=== PATIENT | male | born 1965 | race Caucasian/White ===

== ENCOUNTER 2024-06-04 10:34 | Emergency (ER) | payer BC, SELFPAY ==
--- OUTSIDE RECORDS SUMMARY | 2024-06-04 10:37 | XMS_ITS | Encounter Summary ---
Author Organization [facility] Address [address] [place] [id number] Care Team Providers Care Cement Fittings Maker Name Role Phone Henrry Pryor MD Primary Care Provider [phone] Ralph House MD Primary Care Provider [phone] [facility] Primary Care Provider + Encounter Details Date Type Department Care Team (Late st Contact Info) Description 05/28/2011 [facility] [address] [phone] Haresh Dunn Social History Tobacco Use Types Packs/Day Years Used Date Smoking Tobacco: Never Alcohol Use Standard Drinks/Week Comments No 0 (1 standard drink = 0.6 oz pur e alcohol) sober 5 years Sex and Gender Information Value Date Recorded Sex Assigned at Not on file Legal Sex Male 3:25 AM [employer] Gender Identity Not on file Sexual Orientation Not on file documented as of this encounter Plan of Treatment Not on file documented as of this encounter Visit Diagnoses Not on filedocumented in this encounter Additional Health Concerns Infection Onset Date Last Indicated Resolved Time Rule Out COVID-19 Comment:Negative COVID-19 06/20/2019 06/20/2019 06/26/2019 12: 24 PM CDT documented as of this encounter Care Teams Cement Fittings Maker Relationship Specialty Start Date End Date Henrry Pryor MD [address] [phone] PCP - General 02/14/08 05/09/15 Ralph House MD [phone] [place] [phone] PCP - General Family Practice 05/10/15 06/19/19 [facility] [id number] [place] [address] [place] [phone] PCP - General 06/20/19 documented as of this encounter
--- OUTSIDE RECORDS SUMMARY | 2024-06-04 10:37 | XMS_ITS | Clinical Summary ---
Author Organization [facility] Address [address] [place] [id number] Care Team Providers Care Delivery Manager Name Role Phone Zuleima Bryant MD Primary Care Provider [phone] Allergies Active Allergy Reactions Criticality Noted Date Comments Fluoxetine Headache Low 04/25/2015 Medications fluticasone (50 mcg per actuation) nasal solution (FLONASE)Indicati ons:Rhinitis, unspecified type Inhale 1 [place] to both nostrils two times daily. 48 mL 3 3 Active fluticasone propion-salmetero L (ADVAIR) 500-50 mcg/Dose diskus inhalerIndication s:SOB (shortness of breath) Inhale 1 Puff by mouth two times daily. 180 Each 3 4 Active predniSONE (DELTASONE) 50 mg tab tabletIndications :Sinusitis, unspecified chronicity, unspecified location,Moderate persistent asthma without complication Take 1 tablet with morning meal x 10 days 10 Tablet 1 4 Active albuterol HFA (PRO-AIR; VENTOLIN; PROVENTIL) 90 mcg/actuation inhalerIndication s:Moderate persistent asthma without complication Inhale 2 Puffs by mouth every 4 hours if needed for Shortness of Breath 1st choice. 1 Each 11 4 Active omeprazole (PRILOSEC) 40 mg Delayed-Release capsuleIndication s:Chronic GERD TAKE 1 CAPSULE BY MOUTH EVERY DAY BEFORE A MEAL 90 Capsule 2 4 Active escitalopram oxalate (Lexapro) 20 mg tabletIndications :Depression, recurrent Take 1 Tablet (20 mg) by mouth once daily. 90 Tablet 3 Active SUMAtriptan (IMITREX) 100 mg tabletIndications :Migraine syndrome Take 1 Tablet (100 mg) by mouth 2 times daily if needed for Migraine. Give at minimum 2hrs apart. Max Dose: 200mg per 24hrs. 10 Tablet 3 5 Active Active Problems Problem Noted Date Diagnosed Date Routine health maintenance 04/20/2024 Overview (04/20/2024): Colonoscopy 03/28, recheck 5 years S/p left long finger DIP grabiel nt arthrotomy with excision of distal phalanx osteophyte DOS:10/26/22 by Jamir Harris MD 11/05/2022 Lump on finger, left 09/24/2022 Moderate persistent asthma 08/24/2017 Mixed hyperlipidemia 08/24/2017 S/P sinus surgery 08/24/2017 Hematuria 03/31/2016 GERD (gastroesophageal reflux disease) 3 Chronic rhinitis 03/27/2011 Tubular adenoma of colon Overview (04/10/2019): 03/2019 2 polyps; repeat 2023. [address] scan, esophagus Resolved Problems Problem Noted Date Diagnosed Date Resolved Date Asthma 08/24/2017 Encounters Date Type Department Care Team Description 04/27/2024 9:25 AM PROCESS DESIGN CHEMICAL ENGINEER Office Visit [address] [address] Drew Blackmon MD Medication Management (Patient needs refills dosage was increased.); Establish Care; Diarrhea (Every morning for about 4-5 months, patient states that is really bad and he has leakage.); Cough; Fatigue; Lab (Patient would like Testosterone levels checked.) 04/26/2024 Travel 04/24/2024 Refill [facility] [id number] [place] [id number] Heidi Bourne NP Refill Request (Escitalopram Oxalate) 04/24/2024 Telephone [facility] [id number] [place] [address] Zuleima Bryant MD Refill Request (escitalopram oxalate (LEXAPRO) 10 mg tablet /) from Last 3 Months Immunizations Name Administration Dates Next Due AMB INFLUENZA, IIV4 (AGE=>6M OS) MDV (Flu Clinic Only) 01/21/2020 COVID-19 VACCINE SPIKEVAX (M ODERNA 50MCG/0.5ML) 12YO+ PFS 04/08/2023 COVID-19 vaccine (Moderna 50mcg/0.5mL) 12YO+ BIVALENT PF, MDV 12/31/2021 COVID-19 vaccine (Pfizer-Bio NTech 30mcg/0.3mL) PF, MDV 07/26/2020,07/06/2020 Influenza, IIV3 (Age >=3 years) 12/22/19 13,02/02/2012,01/04/2012,2010,01/27/2010 Influenza, IIV4 04/08/2023,,03/12/2021,2018,04/20/2018,01/19/2017,01/14/2016,1 ,12/27/2013 Influenza, IIV4 (=>6mos) MDV 01/07/2015 Pneumococcal Poly,23-Valent (Pneumovax) 05/30/2012 Tdap 09/07/2017,02/02/2012 Family History Medical History Relation Name Comments Alcoholism Father Cancer Father unknown Cancer Maternal Grandfather unsure Cancer Maternal Grandmother brain t umor Cancer-prostate Maternal Uncle Psychiatric illness Mother depressi on Diabetes Son Relation Name Status Comments Father Maternal Grandfather Maternal Grandmother Maternal Uncle Mother Alive Paternal Grandfather Paternal Grandmother Son Alive Social History Tobacco Use Types Packs/Day Years Used Date Smoking Tobacco: Never Passive Smoke Exposure: Never Smokeless Tobacco: Never Tobacco Cessation:Counseling Given: No Alcohol Use Standard Drinks/Week Comments No 0 (1 standard drink = 0.6 oz pur e alcohol) quit 2000 to avoid problem PHQ-2 Answer Date Recorded PHQ-2 TOTAL SCORE 1 03/06/2024 Social Connections Answer Date Recorded Do you often feel lonely or isolated from those around you? 0 04/27/2024 Financial Resource Strain Answer Date R ecorded Difficulty of Paying Living Expenses 3 12/16/2023 Difficulty of Paying Living Expenses Not on file 12/16/2023 Food Insecurity Answer Date Recorded Do you worry your food will run out before you are able to buy more? 1 04/27/2024 Transportation Needs Answer Date Record ed Does lack of transportation keep you from medica l appointments? 1 04/27/2024 Does lack of transportation keep you from work, meetings or getting things that you need? 1 04/27/2024 Housing Stability Answer Date Recorded What is your housing situation today? 1 04/27/2024 Utilities Answer Date Recorded Do you have trouble paying f or utilities (for example, heat, electricity, water, phone)? 1 04/27/2024 Sex and Gender Information Value Date Recorded Sex Assigned at Male 09/24/2020 9:26 PM CDT Legal Sex Male 2:28 PM PROCESS DESIGN CHEMICAL ENGINEER Gender Identity Male 09/24/2020 9:26 PM CDT Sexual Orientation Not on file 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 file Not on file Not on file Obstetrics History Last Filed Vital Signs Vital Sign Reading Time Taken Comments Blood Pressure 142/92 04/27/2024 9:26 AM PROCESS DESIGN CHEMICAL ENGINEER Pulse 69 04/27/2024 9:24 AM PROCESS DESIGN CHEMICAL ENGINEER Temperature 37.4 C (99.3 F) 12/30/2023 12:57 PM CDT Respiratory Rate 16 03/05/2022 1:00 PM PROCESS DESIGN CHEMICAL ENGINEER Oxygen Saturation 95% 04/27/2024 9:24 AM PROCESS DESIGN CHEMICAL ENGINEER Inhaled Oxygen Concentration - - Weight 98.2 kg (216 lb 9.6 oz) 04/27/2024 9:24 A M PROCESS DESIGN CHEMICAL ENGINEER Height 182.9 cm (6') 04/27/2024 9:24 AM PROCESS DESIGN CHEMICAL ENGINEER Body Mass Index 29.38 04/27/2024 9:24 AM PROCESS DESIGN CHEMICAL ENGINEER Plan of Treatment Health Maintenance Due Date Last Done Comments HIV for age 15-65 1978 Hepatitis C screening for ag e 18-79 1981 Zoster (shingles) series for age 50+ (1 of 2) 2013 Pneumococcal series for age 50+ (2 of 2 - PCV) 05/30/2013 05/30/2012 RSV vaccine for adults or (1 - Risk 60-74 years 1-dose series) 2023 COVID-19 vaccine series ( season) 2023 04/08/2023, 12/31/2021, 03/12/2021, Additional history exists Influenza for age 50-64 12/05/2023 04/08/19 24, 12/31/2021, 03/12/2021, Additional history exists Depression screening for age 12+ 03/06/2025 03/06/2024, 03/05/2024, 12/30/2023, Additional history exists BMI (ht and wt on same day) for age 18+ 04/27/2025 04/27/2024, 11/27/2022, 02/12/2022, Additional history exists Tetanus booster 09/08/2027 09/07/2017, 02/02/2012 Colonoscopy through age 75 03/24/202903/24, 2019, 06/08/2013 Lipids for age 45-75 04/27/2029 04/27/2024, 10/30/2021, 02/01/2019, Additional history exists Tdap Completed 09/07/2017, 02/02/2012 Procedures Procedure Name Priority Date/Time Associated Diagnosis Comments CBC WITH AUTO DIFFERENTIAL Routine 04/27/2024 9:52 AM PROCESS DESIGN CHEMICAL ENGINEER Fatigue, unspecified type COMP METABOLIC PANEL Routine 04/27/2024 9:52 AM PROCESS DESIGN CHEMICAL ENGINEER Fatigue, unspecified type PSA TOTAL Routine 04/27/2024 9:52 AM PROCESS DESIGN CHEMICAL ENGINEER Routine health maintenance T4,FREE Routine 04/27/2024 9:52 AM PROCESS DESIGN CHEMICAL ENGINEER Routine health maintenance TSH Routine 04/27/2024 9:52 AM PROCESS DESIGN CHEMICAL ENGINEER Routine health maintenance TESTOSTERONE BIOAVAILABLE & FREE Routine 04/27/2024 9:52 AM PROCESS DESIGN CHEMICAL ENGINEER Routine health maintenance VITAMIN D 25 (DEFICIENCY) Routine 04/27/2024 9:52 AM PROCESS DESIGN CHEMICAL ENGINEER Routine health maintenance LIPID PANEL Routine 04/27/2024 9:52 AM PROCESS DESIGN CHEMICAL ENGINEER Routine health maintenance SCAN-COLONOSCOPY 03/24/2024 7:30 AM PROCESS DESIGN CHEMICAL ENGINEER from Last 3 Months Results * TESTOSTERONE BIOAVAILABLE & FREE (04/27/2024 9:52 AM PROCESS DESIGN CHEMICAL ENGINEER) ALBUMIN 4.3 3.6 - 5.1 g/dL [facility] SEX HORMONE BINDING GLOBULIN 34.9 22 - 77 nmol/L [facility] TESTOSTERONE, FREE 63.6 46.0 - 224.0 pg/mL [facility] TESTOSTERONE,BIO AVAILABLE 125.3 110.0 - 575.0 ng/dL [facility] TESTOSTERONE, TOTAL, MS 489 250 - 1,100 ng/dL [facility] Comment: For additional information, please refer to https://education.FlowJob/faq/QKF333 (This link is being provided for informational/educational purposes only.) (Note) This test was developed and its analytical performance characteristics have been determined by [facility]. It has not been cleared or approved by the FDA. This assay has been validated pursuant to the CLIA regulations and is used for clinical purposes. [facility] [address] [address],[address] [facility] [address] Aleida Ashley MD, PhD Blood BLOOD SPECIMEN / Unknown 04/27/2024 9:52 AM PROCESS DESIGN CHEMICAL ENGINEER 04/27/2024 9:53 AM PROCESS DESIGN CHEMICAL ENGINEER Narrative [facility] - 05/01/2024 10:56 PM PROCESS DESIGN CHEMICAL ENGINEER FASTING:YES FASTING: YES us Drew Blackmon MD SEND OUTS Final Result [facility] [address] [place] [phone], [facility] [address] [address], [address] [place] [address] * (ABNORMAL) VITAMIN D 25 (DEFICIENCY) (04/27/2024 9:52 AM PROCESS DESIGN CHEMICAL ENGINEER) VITAMIN D,25-OH,TOTAL,IA 21(L) 30 - 100 ng/mL [facility] Comment: Vitamin D Status 25-OH Vitamin D: Deficiency: <20 ng/mL Insufficiency: 20 - 29 ng/mL Optimal: > or = 30 ng/mL For 25-OH Vitamin D testing on patients on D2-supplementation and patients for whom quantitation of D2 and D3 fractions is required, the [facility](TM) 25-OH VIT D, (D2,D3), LC/MS/MS is recommended: order code [id number] (patients >2yrs). See Note 1 Note 1 For additional information, please refer to http://education.Litehouse/faq/AMN736 (This link is being provided for informational/ educational purposes only.) Blood BLOOD SPECIMEN / Unknown 04/27/2024 9:52 AM PROCESS DESIGN CHEMICAL ENGINEER 04/27/2024 9:53 AM PROCESS DESIGN CHEMICAL ENGINEER Narrative [facility] - 04/28/2024 4:14 AM PROCESS DESIGN CHEMICAL ENGINEER FASTING:YES FASTING: YES Drew Blackmon MD SEND OUTS Final Result [facility] [address] [place] [address], [facility] [address] [place] [address] * TSH (04/27/2024 9:52 AM PROCESS DESIGN CHEMICAL ENGINEER) TSH 1.67 0.40 - 4.50 mIU/L [facility] Blood BLOOD SPECIMEN / Unknown 04/27/2024 9:52 AM PROCESS DESIGN CHEMICAL ENGINEER 04/27/2024 9:53 AM PROCESS DESIGN CHEMICAL ENGINEER Narrative [facility] - 04/28/2024 4:14 AM PROCESS DESIGN CHEMICAL ENGINEER FASTING:YES FASTING: YES us Drew Blackmon MD CHEMISTRY Final Result [facility] [address] [place] [address], [facility] [address] [place] [address] * CBC AND DIFFERENTIAL (04/27/2024 9:52 AM PROCESS DESIGN CHEMICAL ENGINEER) [facility] WHITE BLOOD CELL COUNT 7.0 3.8 - 10.8 Thousand/u L [facility] RED BLOOD CELL COUNT 5.45 4.20 - 5.80 Million/uL [facility] HEMOGLOBIN 16.5 13.2 - 17.1 g/dL [facility] HEMATOCRIT 49.9 38.5 - 50.0 % [facility] MCV 91.6 80.0 - 100.0 fL [facility] MCH 30.3 27.0 - 33.0 pg [facility] MCHC 33.1 32.0 - 36.0 g/dL [facility] Comment: For adults, a slight decrease in the calculated MCHC value (in the range of 30 to 32 g/dL) is most likely not clinically significant; however, it should be interpreted with caution in correlation with other red cell parameters and the patient's clinical condition. RDW 13.1 11.0 - 15.0 % [facility] PLATELET COUNT 288 140 - 400 Thousand/u L [facility] MPV 11.0 7.5 - 12.5 fL [facility] ABSOLUTE NEUTROPHILS 3,850 1,500 - 7,800 cells/uL [facility] ABSOLUTE LYMPHOCYTES 2,135 850 - 3,900 cells/uL [facility] ABSOLUTE MONOCYTES 784 200 - 950 cells/uL [facility] ABSOLUTE EOSINOPHILS 182 15 - 500 cells/uL [facility] ABSOLUTE BASOPHILS 49 0 - 200 cells/uL [facility] NEUTROPHILS 55 % [facility] LYMPHOCYTES 30.5 % [facility] MONOCYTES 11.2 % [facility] EOSINOPHILS 2.6 % [facility] BASOPHILS 0.7 % [facility] Blood BLOOD SPECIMEN / Unknown 04/27/2024 9:52 AM PROCESS DESIGN CHEMICAL ENGINEER 04/27/2024 9:53 AM PROCESS DESIGN CHEMICAL ENGINEER Narrative [facility] - 04/28/2024 4:14 AM PROCESS DESIGN CHEMICAL ENGINEER FASTING:YES FASTING: YES Drew Blackmon MD HEMATOLOGY Final Result Performing Organization Address City/[facility]/ZIP Co de Phone Number [facility] [address] [place] [address], [place] [phone] [facility] [address] [place] [address] * T4,FREE (04/27/2024 9:52 AM PROCESS DESIGN CHEMICAL ENGINEER) T4, FREE 1.1 0.8 - 1.8 ng/dL [facility] Blood BLOOD SPECIMEN / Unknown 04/27/2024 9:52 AM PROCESS DESIGN CHEMICAL ENGINEER 04/27/2024 9:53 AM PROCESS DESIGN CHEMICAL ENGINEER Narrative [facility] - 04/28/2024 4:14 AM PROCESS DESIGN CHEMICAL ENGINEER FASTING:YES FASTING: YES Drew Blackmon MD CHEMISTRY Final Result Performing Organization Address [facility] Co de Phone Number [facility] [address] [facility] [place] [address], [place] [phone] [facility] [address] [place] [address] * PSA TOTAL (04/27/2024 9:52 AM PROCESS DESIGN CHEMICAL ENGINEER) PSA, TOTAL 0.41 < OR = 4.00 ng/mL [facility] Comment: The total PSA value from this assay system is standardized against the WHO standard. The test result will be approximately 20% lower when compared to the equimolar-standardized total PSA (Panchito Jesus). Comparison of serial PSA results should be interpreted with this fact in mind. This test was performed using the Siemens chemiluminescent method. Values obtained from different assay methods cannot be used interchangeably. PSA levels, regardless of value, should not be interpreted as absolute evidence of the presence or absence of disease. Blood BLOOD SPECIMEN / Unknown 04/27/2024 9:52 AM PROCESS DESIGN CHEMICAL ENGINEER 04/27/2024 9:53 AM PROCESS DESIGN CHEMICAL ENGINEER Narrative [facility] - 04/28/2024 4:14 AM PROCESS DESIGN CHEMICAL ENGINEER FASTING:YES FASTING: YES us Drew Blackmon MD CHEMISTRY Final Result [facility] [address] [place] [address], [place] [phone] [facility] [address] [place] [address] * (ABNORMAL) LIPID PANEL (04/27/2024 9:52 AM PROCESS DESIGN CHEMICAL ENGINEER) CHOLESTEROL, TOTAL 289(H) <200 mg/dL [facility] HDL CHOLESTEROL 59 > OR = 40 mg/dL [facility] TRIGLYCERIDES 175(H) <150 mg/dL [facility] LDL-CHOLESTEROL 196(H) mg/dL (calc) [facility] Comment: LDL-C levels > or = 190 mg/dL may indicate familial hypercholesterolemia (FH). Clinical assessment and measurement of blood lipid levels should be considered for all first degree relatives of patients with an FH diagnosis. LDL Cholesterol (LDL-C) levels > or = 300 mg/dL may indicate homozygous familial hypercholesterolemia (HoFH). Untreated, these extremely high LDL-C levels can result in premature CV events and mortality. Patients should be identified early and provided appropriate interventions to reduce the cumulative LDL-C burden from . For questions about testing for familial hypercholesterolemia, please call [facility] at 5.083.[employer].INFO. Daisy T, et al. J National Lipid Association Recommendations for Patient-Centered Management of Dyslipidemia: Part 1 Journal of Clinical Lipidology 2015;9(2), 129-169. Dieudonne Moss et al. (2014). Homozygous familial hypercholesterolaemia: new insights and guidance for clinicians to improve detection and clinical management. Heart Journal, 35(32), 1249-7420. Reference range: <100 Desirable range <100 mg/dL for primary prevention; <70 mg/dL for patients with CHD or diabetic patients with > or = 2 CHD risk factors. LDL-C is now calculated using the Tennille calculation, which is a validated novel method providing better accuracy than the Friedewald equation in the estimation of LDL-C. Cali WHITING et al. IVAN. 2013;310(19): 2283-0568 (http://education.Syncplicity.TheOfficialBoard/faq/HPZ314) CHOL/HDLC RATIO 4.9 <5.0 (calc) [facility] NON HDL CHOLESTEROL 230(H) <130 mg/dL (calc) [facility] Comment: Non-HDL level > or = 220 is very high and may indicate genetic familial hypercholesterolemia (FH). Clinical assessment and measurement of blood lipid levels should be considered for all first-degree relatives of patients with an FH diagnosis. For patients with diabetes plus 1 major ASCVD risk factor, treating to a non-HDL-C goal of <100 mg/dL (LDL-C of <70 mg/dL) is considered a therapeutic option. Blood BLOOD SPECIMEN / Unknown 04/27/2024 9:52 AM PROCESS DESIGN CHEMICAL ENGINEER 04/27/2024 9:53 AM PROCESS DESIGN CHEMICAL ENGINEER Narrative [facility] - 04/28/2024 3:55 AM PROCESS DESIGN CHEMICAL ENGINEER FASTING:YES FASTING: YES Drew Blackmon MD CHEMISTRY Final Result [facility] [address] [address] [place] [address], [facility] [address] * (ABNORMAL) COMP METABOLIC PANEL (04/27/2024 9:52 AM PROCESS DESIGN CHEMICAL ENGINEER) Pathologist [facility] GLUCOSE 100(H) 65 - 99 mg/dL [facility] Comment: Fasting reference interval For someone without known diabetes, a glucose value between 100 and 125 mg/dL is consistent with prediabetes and should be confirmed with a follow-up test. UREA NITROGEN (BUN) 21 7 - 25 mg/dL [facility] CREATININE 1.11 0.70 - 1.35 mg/dL [facility] EGFR 76 > OR = 60 mL/min/1. 73m2 [facility] BUN/CREATININE RATIO SEE NOTE: 6 - 22 (calc) [facility] Comment: Not Reported: BUN and Creatinine are within reference range. SODIUM 138 135 - 146 mmol/L [facility] POTASSIUM 4.8 3.5 - 5.3 mmol/L [facility] CHLORIDE 106 98 - 110 mmol/L [facility] CARBON DIOXIDE 23 20 - 32 mmol/L [facility] CALCIUM 9.6 8.6 - 10.3 mg/dL [facility] PROTEIN, TOTAL 7.3 6.1 - 8.1 g/dL [facility] ALBUMIN 4.3 3.6 - 5.1 g/dL [facility] GLOBULIN 3.0 1.9 - 3.7 g/dL (calc) [facility] ALBUMIN/GLOBULIN RATIO 1.4 1.0 - 2.5 (calc) [facility] BILIRUBIN, TOTAL 1.5(H) 0.2 - 1.2 mg/dL [facility] ALKALINE PHOSPHATASE 87 35 - 144 U/L [facility] AST 19 10 - 35 U/L [facility] ALT 24 9 - 46 U/L [facility] Blood BLOOD SPECIMEN / Unknown 04/27/2024 9:52 AM PROCESS DESIGN CHEMICAL ENGINEER 04/27/2024 9:53 AM PROCESS DESIGN CHEMICAL ENGINEER Narrative [facility] - 04/28/2024 3:55 AM PROCESS DESIGN CHEMICAL ENGINEER FASTING:YES FASTING: YES Drew Blackmon MD CHEMISTRY Final Result [facility] [address] [place] [address], [facility] [address] [place] [address] * SCAN-COLONOSCOPY (03/24/2024 7:30 AM PROCESS DESIGN CHEMICAL ENGINEER) Narrative Procedure Note Yara Estes MD - 03/24/2024 6:47 AM CST [facility] [address] [facility], [address], [place] [address] Patient Name: Prateek Jerome Gender: Male Exam Date: 03/24/2024 Visit Number: [id number] Age: 59 Years Date of : 1965 Attending MD: Yara Estes MD Medical Record#: [id number] Procedure: Colonoscopy Indications: Previous adenomatous polyp(s) Referring MD: Referral Self Primary MD: Zuleima Bryant MD Medications: Admitting Medications: 0.9% Normal Saline at TKO Intra Procedure Medications: Patient received monitored anesthesia care. Complications: No immediate complications Procedure: An examination of the heart and lungs was performed and found to be withinacceptable limits. . The patient was therefore deemed a reasonablecandidate for endoscopy and sedation. The risks and benefits of the procedure were explained to the patient.After obtaining informed consent, the patient received monitoredanesthesia care and I passed the scope without difficulty via the rectum to the cecum. The appendiceal orificeand ic valve were identified. The scope was retroflexed during theexamination The quality of the prep was good (Miralax/Gatorade/2 tabletsBisacodyl/Magnesium Citrate). This was a complete examination throughout the entire colon. Findings: Polyp location: ascending colon. Quantity: 1. Size: 2 mm. Polyp shape:sessile. Maneuver: polypectomy was performed with a cold biopsy forceps. Removal: complete. Retrieval: complete. Bleeding: none. Polyp location: descending colon. Quantity: 1. Size: 2 mm. Polyp shape:sessile. Maneuver: polypectomy was performed with a cold biopsy forceps. Removal: complete. Retrieval: complete. Bleeding: none. Polyp location: sigmoid. Quantity: 1. Size: 2 mm. Polyp shape:sessile. Maneuver: polypectomy was performed with a cold biopsy forceps. Removal: complete. Retrieval: complete. Bleeding: none. Hemorrhoids. Internal hemorrhoids without bleeding. Impression: Colorectal polyps Preliminary Plan: The patient and their physician will receive a copy of the pathologyreport as well as pathology-based recommendations for future screening orsurveillance. Pathology Results: A: COLON, ASCENDING, POLYP: 1. Tubular adenoma 2. Negative for high grade dysplasia 3. Per the colonoscopy report: a. Polyp size: 3 mm b. Resection: Complete c. Retrieval: Complete B: COLON, DESCENDING, POLYP: 1. Tubular adenoma 2. Negative for high grade dysplasia 3. Per the colonoscopy report: a. Polyp size: 2 mm b. Resection: Complete c. Retrieval: Complete C: COLON, SIGMOID, POLYP: 1. Hyperplastic polyp MICROSCOPIC A: Performed B: Performed C: Performed Electronically signed by: Torey Magana MD Interpreted at [facility], [address] [place] [phone] Orders Instruction(s)/Education: Instruction/Education Timeframe Assessment Colon Cancer Prevention K63.5 Colon Polyps K63.5 Hemorrhoids (Internal) K63.5 High Fiber Diet K63.5 Final Plan: Repeat colonoscopy in 5 years. We will attempt to contact you at appropriate intervals via U.S. mail. Wemay not be able to find you or contact you at that time, therefore youshould know that the responsibility for following our recommendation restswith you. If you don't hear from us at the time your procedure is due,please contact our office to schedule an appointment. If your contactinformation should change, please contact our office so that we can updateyour record. _Electronically signed by: Yara Estes MD 03/24/2024 cc: Zuleima Bryant MD Yara Estes MD OTHER Final Result from Last 3 Months Insurance BLUE CROSS OF NON-[place]-ITS Advance Directives * Full Code (Latest Code Status on File) Date Activated Date Inactivated Comments 03/05/2022 11:15 AM 03/05/2022 3:06 PM Question Answer Comments Code Status Discussion: Reviewed Preferences Care Teams Delivery Manager Relationship Specialty Start Date End Date Zuleima Bryant MD PCP - General Family Practice 03/15/17
--- OUTSIDE RECORDS SUMMARY | 2024-06-04 10:37 | XMS_ITS | Clinical Summary ---
Author Organization [place] Address [address] [place] [address] Care Team Providers Care Labor Relations Consultant Name Role Phone [facility], [facility] Primary Care Provider + Allergies No known active allergies Medications montelukast (SINGULAIR) 10 MG tabletIndicatio ns:Moderate persistent asthma,Seasonal allergic rhinitis Take 1 tablet by mouth At Bedtime. 30 tablet prn 2 Active fluticasone (FLONASE) 50 MCG/ACT nasal sprayIndication s:Seasonal allergic rhinitis Bushnell 2 sprays into both nostrils daily. 1 Package 11 2 Active fluticasone-oseas meterol (ADVAIR DISKUS) 250-50 MCG/DOSE diskus inhalerIndicati ons:Moderate persistent asthma Inhale 1 puff into the lungs 2 times daily. 1 Inhaler 1 2 Active albuterol (PROVENTIL HFA) 108 (90 BASE) MCG/ACT inhaler Inhale 2 puffs into the lungs every 4 hours as needed for shortness of breath / dyspnea 1 Inhaler 0 6 Active ALPRAZolam (XANAX) 1 MG tablet Take 1 tablet (1 mg) by mouth 3 times daily as needed for anxiety 10 tablet 0 6 Active metoclopramide (REGLAN) 10 MG tablet Take 1 tablet (10 mg) by mouth 4 times daily (before meals and nightly) For headache, use with 25mg of benadryl 15 tablet 0 Active predniSONE (DELTASONE) 20 MG tablet Take two tablets (= 40mg) each day for 5 (five) days as anti inflammtory for migraine headache 10 tablet 0 Active Active Problems Problem Noted Date Diagnosed Date Chronic rhinitis 03/27/2011 CARDIOVASCULAR SCREENING; LDL GOAL LESS THAN 130 02/02/2010 Moderate persistent asthma Immunizations Name Administration Dates Next Due Influenza (IIV3) PF 02/02/2012 TDAP (Adacel,Boostrix) 02/02/2012 Family History Medical History Relation Comments Cancer Father lung, liver ? Cancer Maternal Grandfather lung ca Cancer Maternal Grandmother Cancer - colorectal Maternal Uncle colon Cancer Paternal Grandfather Cancer Paternal Grandmother Relation Status Comments Father Maternal Grandfather Maternal Grandmother Maternal Uncle Paternal Grandfather Paternal Grandmother Social History Tobacco Use Types Packs/Day Years Used Date Smoking Tobacco: Never Alcohol Use Standard Drinks/Week Comments No 0 (1 standard drink = 0.6 oz pur e alcohol) sober 5 years Adolescent Education Answer Date Record ed Getting School Help Needed Not on file 01/03 Sex and Gender Information Value Date Recorded Sex Assigned at Not on file 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 Gender Identity Not on file Sexual Orientation Not on file Last Filed Vital Signs Vital Sign Reading Time Taken Comments Blood Pressure 131/73 10/11/2019 8:30 PM CDT Pulse 54 10/11/2019 8:30 PM CDT Temperature 36.3 C (97.4 F) 10/11/2019 5:39 PM CDT Respiratory Rate 20 10/11/2019 5:39 PM CDT Oxygen Saturation 100% 10/11/2019 8:30 PM CDT Inhaled Oxygen Concentration - - Weight 90.7 kg (200 lb) 06/20/2019 10:00 AM CDT Height 182.9 cm (6') 06/20/2019 10:00 AM CDT Body Mass Index 27.12 06/20/2019 10:00 AM CDT Plan of Treatment Not on file Insurance BCBS OUT OF STATE Care Teams Labor Relations Consultant Relationship Specialty Start Date End Date [facility] [address] [place] [address] PCP - General 06/20/19
[2024-06-04 10:38] VITALS: BP 160/101; PULSE 66; RESP 18; TEMP 36; O2SAT 96; BMI 27.1
--- NOTE | 2024-06-04 10:56 | CRLHL7_ITS ---
For Patients: As a result of the Century Cures Act, medical imaging exams and procedure reports are released immediately into your electronic medical record. You may view this report before your referring provider. If you have questions, please contact your health care provider. INDICATION: Shortness of breath TECHNIQUE: Two view chest. FINDINGS: The heart, mediastinum and pulmonary vessels are of normal size. There is no evidence of pleural disease. Possible subtle left perihilar infiltrate. Negative chest. Dictated by Marisa Franco MD @ 06/04/2024 11:46:25 AM (Electronically Signed)
[2024-06-04] MEDS: IPRAT-ALBUT 0.5-2.5 MG/3 ML NEB 1 NEB IH (11:10)
[2024-06-04] MEDS: ONDANSETRON 2 MG/ML inj 4 MG IVP (11:24)
[2024-06-04] MEDS: 0.9 % SODIUM CHLORIDE 500 ML 500 ML IV (11:24)
--- OUTSIDE RECORDS SUMMARY | 2024-06-04 11:48 | XMS_ITS | Clinical Summary ---
Author Organization [place] Address [address] [place] [address] Care Team Providers Care Office Clerk Assistant Name Role Phone [facility], [facility] Primary Care Provider + Allergies No known active allergies Medications montelukast (SINGULAIR) 10 MG tabletIndicatio ns:Moderate persistent asthma,Seasonal allergic rhinitis Take 1 tablet by mouth At Bedtime. 30 tablet prn 2 Active fluticasone (FLONASE) 50 MCG/ACT nasal sprayIndication s:Seasonal allergic rhinitis Clarence 2 sprays into both nostrils daily. 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
--- OUTSIDE RECORDS SUMMARY | 2024-06-04 11:48 | XMS_ITS | Encounter Summary ---
Author Organization [place] Address [address] [place] [address] Care Team Providers Care Retanned Leather Roller Name Role Phone Henrry Pryor MD Primary Care Provider [phone] Ralph House MD Primary Care Provider [phone] [facility] Primary Care Provider + Encounter Details Date Type Department Care Team (Late st Contact Info) Description 08/12/2011 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 Gender Identity Not on file Sexual Orientation Not on file documented as of this encounter Plan of Treatment Not on file documented as of this encounter Visit Diagnoses Not on filedocumented in this encounter Additional Health Concerns Infection Onset Date Last Indicated Resolved Time Rule Out COVID-19 Comment:Negative COVID-19 06/20/2019 06/20/2019 06/26/2019 12: 24 PM CDT documented as of this encounter Care Teams Retanned Leather Roller Relationship Specialty Start Date End Date Henrry Pryor MD [address] [phone] PCP - General 02/14/08 05/09/15 Ralph House MD [address] [place] [phone] PCP - General Family Practice 05/10/15 06/19/19 [facility] [address] [place] [address] [place] [address] PCP - General 06/20/19 documented as of this encounter
--- OUTSIDE RECORDS SUMMARY | 2024-06-04 11:48 | XMS_ITS | Clinical Summary ---
Author Organization [facility] Address [address] [place] [address] Care Team Providers Care Supervisor Pile Driving Name Role Phone Zuleima Bryant MD Primary Care Provider [phone] Allergies Active Allergy Reactions Criticality Noted Date Comments Fluoxetine Headache Low 04/25/2015 Medications fluticasone (50 mcg per actuation) nasal solution (FLONASE)Indicati ons:Rhinitis, unspecified type Inhale 1 Harlan to both nostrils two times daily. 48 [...] Department Care Team Description 04/27/2024 9:25 AM SVP RESEARCH AND STRATEGIC ANALYSIS Office Visit [address] [address] Drew Blackmon MD Medication Management (Patient needs refills dosage was increased.); Establish Care; Diarrhea (Every morning for about 4-5 months, patient states that is really bad and he has leakage.); Cough; Fatigue; Lab (Patient would like Testosterone levels checked.) 04/26/2024 Travel 04/24/2024 Refill [facility] [address] [place] [address] Heidi Bourne NP Refill Request (Escitalopram Oxalate) 04/24/2024 Telephone [facility] [address] [place] [address] Zuleima Bryant MD Refill Request (escitalopram oxalate [...] PM CDT Legal Sex Male 2:28 PM SVP RESEARCH AND STRATEGIC ANALYSIS Gender Identity Male 09/24/2020 9:26 PM CDT Sexual Orientation Not on file 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 file Not on file Not on file Obstetrics History Last Filed Vital Signs Vital Sign Reading Time Taken Comments Blood Pressure 142/92 04/27/2024 9:26 AM SVP RESEARCH AND STRATEGIC ANALYSIS Pulse 69 04/27/2024 9:24 AM SVP RESEARCH AND STRATEGIC ANALYSIS Temperature 37.4 C (99.3 F) 12/30/2023 12:57 PM CDT Respiratory Rate 16 03/05/2022 1:00 PM SVP RESEARCH AND STRATEGIC ANALYSIS Oxygen Saturation 95% 04/27/2024 9:24 AM SVP RESEARCH AND STRATEGIC ANALYSIS Inhaled Oxygen Concentration - - Weight 98.2 kg (216 lb 9.6 oz) 04/27/2024 9:24 A M SVP RESEARCH AND STRATEGIC ANALYSIS Height 182.9 cm (6') 04/27/2024 9:24 AM SVP RESEARCH AND STRATEGIC ANALYSIS Body Mass Index 29.38 04/27/2024 9:24 AM SVP RESEARCH AND STRATEGIC ANALYSIS Plan of Treatment Health Maintenance Due Date [...] WITH AUTO DIFFERENTIAL Routine 04/27/2024 9:52 AM SVP RESEARCH AND STRATEGIC ANALYSIS Fatigue, unspecified type COMP METABOLIC PANEL Routine 04/27/2024 9:52 AM SVP RESEARCH AND STRATEGIC ANALYSIS Fatigue, unspecified type PSA TOTAL Routine 04/27/2024 9:52 AM SVP RESEARCH AND STRATEGIC ANALYSIS Routine health maintenance T4,FREE Routine 04/27/2024 9:52 AM SVP RESEARCH AND STRATEGIC ANALYSIS Routine health maintenance TSH Routine 04/27/2024 9:52 AM SVP RESEARCH AND STRATEGIC ANALYSIS Routine health maintenance TESTOSTERONE BIOAVAILABLE & FREE Routine 04/27/2024 9:52 AM SVP RESEARCH AND STRATEGIC ANALYSIS Routine health maintenance VITAMIN D 25 (DEFICIENCY) Routine 04/27/2024 9:52 AM SVP RESEARCH AND STRATEGIC ANALYSIS Routine health maintenance LIPID PANEL Routine 04/27/2024 9:52 AM SVP RESEARCH AND STRATEGIC ANALYSIS Routine health maintenance SCAN-COLONOSCOPY 03/24/2024 7:30 AM SVP RESEARCH AND STRATEGIC ANALYSIS from Last 3 Months Results * TESTOSTERONE BIOAVAILABLE & FREE (04/27/2024 9:52 AM SVP RESEARCH AND STRATEGIC ANALYSIS) ALBUMIN 4.3 3.6 - 5.1 g/dL [facility] SEX HORMONE BINDING GLOBULIN 34.9 22 - 77 nmol/L [facility] TESTOSTERONE, FREE 63.6 46.0 - 224.0 pg/mL [facility] TESTOSTERONE,BIO AVAILABLE 125.3 110.0 - 575.0 ng/dL [facility] TESTOSTERONE, TOTAL, MS 489 250 - 1,100 ng/dL [facility] Comment: For additional information, please refer to https://education.Cognition Technologies/faq/GTE251 (This link is being provided for informational/educational purposes only.) (Note) This test was developed and its analytical performance characteristics have been determined by [facility]. It has not been cleared or approved by the FDA. This assay has been validated pursuant to the CLIA regulations and is used for clinical purposes. [facility] [address] [address],[address] [facility] [address] Aleida Ashley MD, PhD Blood BLOOD SPECIMEN / Unknown 04/27/2024 9:52 AM SVP RESEARCH AND STRATEGIC ANALYSIS 04/27/2024 9:53 AM SVP RESEARCH AND STRATEGIC ANALYSIS Narrative [facility] - 05/01/2024 10:56 PM SVP RESEARCH AND STRATEGIC ANALYSIS FASTING:YES FASTING: YES us Drew Blackmon MD SEND OUTS Final Result [facility] [address] [place] [phone], [facility] [address] [address], [address] [place] [address] * (ABNORMAL) VITAMIN D 25 (DEFICIENCY) (04/27/2024 9:52 AM SVP RESEARCH AND STRATEGIC ANALYSIS) VITAMIN D,25-OH,TOTAL,IA 21(L) 30 - 100 ng/mL [facility] Comment: Vitamin D Status 25-OH Vitamin D: Deficiency: <20 ng/mL Insufficiency: 20 - 29 ng/mL Optimal: > or = 30 ng/mL For 25-OH Vitamin D testing on patients on D2-supplementation and patients for whom quantitation of D2 and D3 fractions is required, the [facility](TM) 25-OH VIT D, (D2,D3), LC/MS/MS is recommended: order code 97560 (patients >2yrs). See Note 1 Note 1 For additional information, please refer to http://education.Musement/faq/NBM290 (This link is being provided for informational/ educational purposes only.) Blood BLOOD SPECIMEN / Unknown 04/27/2024 9:52 AM SVP RESEARCH AND STRATEGIC ANALYSIS 04/27/2024 9:53 AM SVP RESEARCH AND STRATEGIC ANALYSIS Narrative [facility] - 04/28/2024 4:14 AM SVP RESEARCH AND STRATEGIC ANALYSIS FASTING:YES FASTING: YES Drew Blackmon MD SEND OUTS Final Result [facility] [address] [place] [address], [facility] [address] [place] [address] * TSH (04/27/2024 9:52 AM SVP RESEARCH AND STRATEGIC ANALYSIS) TSH 1.67 0.40 - 4.50 mIU/L [facility] Blood BLOOD SPECIMEN / Unknown 04/27/2024 9:52 AM SVP RESEARCH AND STRATEGIC ANALYSIS 04/27/2024 9:53 AM SVP RESEARCH AND STRATEGIC ANALYSIS Narrative [facility] - 04/28/2024 4:14 AM SVP RESEARCH AND STRATEGIC ANALYSIS FASTING:YES FASTING: YES us Drew Blackmon MD CHEMISTRY Final Result [facility] [address] [place] [address], [facility] [address] [place] [address] * CBC AND DIFFERENTIAL (04/27/2024 9:52 AM SVP RESEARCH AND STRATEGIC ANALYSIS) [facility] WHITE BLOOD CELL COUNT 7.0 [...] 15 - 500 cells/uL [facility] ABSOLUTE BASOPHILS 49 0 - 200 cells/uL [facility] NEUTROPHILS 55 % [facility] LYMPHOCYTES 30.5 % [facility] MONOCYTES 11.2 % [facility] EOSINOPHILS 2.6 % [facility] BASOPHILS 0.7 % [facility] Blood BLOOD SPECIMEN / Unknown 04/27/2024 9:52 AM SVP RESEARCH AND STRATEGIC ANALYSIS 04/27/2024 9:53 AM SVP RESEARCH AND STRATEGIC ANALYSIS Narrative [facility] - 04/28/2024 4:14 AM SVP RESEARCH AND STRATEGIC ANALYSIS FASTING:YES FASTING: YES Drew Blackmon MD HEMATOLOGY Final Result Performing Organization Address City/[facility]/ZIP Co de Phone Number [facility] [address] [place] [address], [place] [phone] [facility] [address] [place] [address] * T4,FREE (04/27/2024 9:52 AM SVP RESEARCH AND STRATEGIC ANALYSIS) T4, FREE 1.1 0.8 - 1.8 ng/dL [facility] Blood BLOOD SPECIMEN / Unknown 04/27/2024 9:52 AM SVP RESEARCH AND STRATEGIC ANALYSIS 04/27/2024 9:53 AM SVP RESEARCH AND STRATEGIC ANALYSIS Narrative [facility] - 04/28/2024 4:14 AM SVP RESEARCH AND STRATEGIC ANALYSIS FASTING:YES FASTING: YES Drew Blackmon MD CHEMISTRY Final Result Performing Organization Address [facility] Co de Phone Number [facility] [address] [place] [address], [place] [phone] [facility] [address] [place] [address] * PSA TOTAL (04/27/2024 9:52 AM SVP RESEARCH AND STRATEGIC ANALYSIS) PSA, TOTAL 0.41 < OR = 4.00 ng/mL [facility] Comment: The total PSA value from [...] BLOOD SPECIMEN / Unknown 04/27/2024 9:52 AM SVP RESEARCH AND STRATEGIC ANALYSIS 04/27/2024 9:53 AM SVP RESEARCH AND STRATEGIC ANALYSIS Narrative [facility] - 04/28/2024 4:14 AM SVP RESEARCH AND STRATEGIC ANALYSIS FASTING:YES FASTING: YES us Drew Blackmon MD CHEMISTRY Final Result [facility] [address] [place] [address], [place] [phone] [facility] [address] [place] [address] * (ABNORMAL) LIPID PANEL (04/27/2024 9:52 AM SVP RESEARCH AND STRATEGIC ANALYSIS) CHOLESTEROL, TOTAL 289(H) <200 mg/dL [facility] HDL CHOLESTEROL 59 > OR = 40 mg/dL [facility] TRIGLYCERIDES 175(H) <150 mg/dL [facility] LDL-CHOLESTEROL 196(H) mg/dL (calc) [facility] Comment: LDL-C levels > or = [...] about testing for familial hypercholesterolemia, please call [employer] [facility] at .[email or web address]. Daisy T, et al. J National Lipid Association Recommendations for Patient-Centered Management of Dyslipidemia: Part 1 Journal of Clinical Lipidology 2015;9(2), 129-169. Dieudonne Moss et al. (2014). Homozygous familial hypercholesterolaemia: new insights and guidance for clinicians to improve detection and clinical management. Heart Journal, 35(32), 7189-8975. Reference range: <100 Desirable range <100 mg/dL for primary prevention; <70 mg/dL for patients with CHD or diabetic patients with > or = 2 CHD risk factors. LDL-C is now calculated using the Tennille calculation, which is a validated novel method providing better accuracy than the Friedewald equation in the estimation of LDL-C. Cali WHITING et al. IVAN. 2013;310(19): 2123-2644 (http://education.Sales Force [employer].Isomark/faq/NDU903) CHOL/HDLC RATIO 4.9 <5.0 (calc) [facility] NON HDL CHOLESTEROL 230(H) <130 mg/dL (calc) [facility] Comment: Non-HDL level > or = [...] BLOOD SPECIMEN / Unknown 04/27/2024 9:52 AM SVP RESEARCH AND STRATEGIC ANALYSIS 04/27/2024 9:53 AM SVP RESEARCH AND STRATEGIC ANALYSIS Narrative [facility] - 04/28/2024 3:55 AM SVP RESEARCH AND STRATEGIC ANALYSIS FASTING:YES FASTING: YES Drew Blackmon MD CHEMISTRY Final Result [facility] [address] [place] [address], [facility] [address] * (ABNORMAL) COMP METABOLIC PANEL (04/27/2024 9:52 AM SVP RESEARCH AND STRATEGIC ANALYSIS) Pathologist [facility] GLUCOSE 100(H) 65 - 99 mg/dL [facility] Comment: Fasting reference interval For someone without known diabetes, a glucose value between 100 and 125 mg/dL is consistent with prediabetes and should be confirmed with a follow-up test. UREA NITROGEN (BUN) 21 7 - 25 mg/dL [facility] CREATININE 1.11 0.70 - 1.35 mg/dL [facility] EGFR 76 > OR = 60 mL/min/1. 73m2 [facility] BUN/CREATININE RATIO SEE NOTE: 6 - 22 (calc) [facility] Comment: Not Reported: BUN and Creatinine [...] BLOOD SPECIMEN / Unknown 04/27/2024 9:52 AM SVP RESEARCH AND STRATEGIC ANALYSIS 04/27/2024 9:53 AM SVP RESEARCH AND STRATEGIC ANALYSIS Narrative [facility] - 04/28/2024 3:55 AM SVP RESEARCH AND STRATEGIC ANALYSIS FASTING:YES FASTING: YES Drew Blackmon MD CHEMISTRY Final Result [facility] [address] [place] [address], [facility] [address] [place] [address] * SCAN-COLONOSCOPY (03/24/2024 7:30 AM SVP RESEARCH AND STRATEGIC ANALYSIS) Narrative Procedure Note Yara Estes MD - 03/24/2024 6:47 AM CST [facility] [address] [facility], [address], [place] [address] Patient Name: Prateek Jerome Gender: Male Exam Date: 03/24/2024 Visit Number: [id number] Age: 59 Years Date of : 1965 Attending MD: Yara Estes MD Medical Record#: [id number] Procedure: Colonoscopy Indications: Previous adenomatous polyp(s) Referring [...] signed by: Torey Magana MD Interpreted at [facility], [address] [place] [address] Orders Instruction(s)/Education: Instruction/Education Timeframe Assessment Colon Cancer [...] Last 3 Months Insurance BLUE CROSS OF NON-NM-ITS Advance Directives * Full Code (Latest Code Status on File) Date Activated Date Inactivated Comments 03/05/2022 11:15 AM 03/05/2022 3:06 PM Question Answer Comments Code Status Discussion: Reviewed Preferences Care Teams Supervisor Pile Driving Relationship Specialty Start Date End Date Zuleima Bryant MD PCP - General Family Practice 03/15/17
--- OUTSIDE RECORDS SUMMARY | 2024-06-04 11:48 | XMS_ITS | Encounter Summary ---
Author Organization [facility] Address [address] [place] [address] Care Team Providers Care Patent Lawyer Name Role Phone Henrry Pryor MD Primary Care Provider [phone] Ralph House MD Primary Care Provider [phone] [facility] Primary Care Provider + Encounter Details Date Type Department Care Team (Late st Contact Info) Description 05/28/2011 [facility] [address] [address] Haresh Dunn Social History Tobacco Use Types Packs/Day Years Used Date Smoking Tobacco: Never Alcohol Use Standard Drinks/Week Comments No 0 (1 standard drink = 0.6 oz pur e alcohol) sober 5 years Sex and Gender Information Value Date Recorded Sex Assigned at Not on file 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 Gender Identity Not on file Sexual Orientation Not on file documented as of this encounter Plan of Treatment Not on file documented as of this encounter Visit Diagnoses Not on filedocumented in this encounter Additional Health Concerns Infection Onset Date Last Indicated Resolved Time Rule Out COVID-19 Comment:Negative COVID-19 06/20/2019 06/20/2019 06/26/2019 12: 24 PM CDT documented as of this encounter Care Teams Patent Lawyer Relationship Specialty Start Date End Date Henrry Pryor MD [address] [phone] PCP - General 02/14/08 05/09/15 Ralph House MD [address] [place] [phone] PCP - General Family Practice 05/10/15 06/19/19 [facility] [address] [place] [address] [place] [address] PCP - General 06/20/19 documented as of this encounter
[2024-06-04 11:56] LABS: PCR FLU A Negative PCR FLU A (Negative); PCR FLU B POSITIVE PCR FLU B (Negative); PCR RSV Negative PCR RSV (Negative); SARS PCR* Negative SARS-CoV-2 (Negative)
--- NOTE | 2024-06-04 11:56 | ED.GENADULT ---
HPI - General Adult General Chief complaint: Weakness Stated complaint: trouble breathing/asthma Time Seen by Provider: 06/04/24 10:39 Source: patient Mode of arrival: ambulatory Limitations: no limitations History of Present Illness HPI narrative: 59-year-old male presenting today with weakness, cough, shortness of breath, decreased appetite, diarrhea, chills going on for about a week. Patient has a history of asthma, has been using his inhaler more often than usual. Patient denies tobacco use. Denies any abdominal pain or chest pain. Denies any sick contacts. Cough is nonproductive. Related Data Home Medications ?Medication ?Instructions ?Recorded ?Confirmed albuterol sulfate 90 mcg/actuation 2 puff inhalation Q4H PRN dyspnea 06/04/24 06/04/24 aerosol inhaler budesonide-formoterol HFA 160 2 puff inhalation BID 06/04/24 06/04/24 mcg-4.5 mcg/actuation aerosol inhaler omeprazole 40 mg capsule,delayed 40 mg PO DAILY 06/04/24 06/04/24 release Allergies Allergy/AdvReac Type Severity Reaction Status Date / Time No Known Drug Allergies Allergy Verified 06/04/24 10:44 Review of Systems Status of ROS: Reports: 10 or more systems reviewed and unremarkable except as noted in History and below PFSH PFS Social History Smoking Status: Never smoker How often do you have a drink containing alcohol: never AUDIT-C Alcohol total score: 0 Non-prescribed substance use: denies use Exam Narrative: Exam Narrative: Well-nourished well-developed patient in no acute distress. Alert and oriented. Answers questions appropriately. Mood and affect are appropriate. Thoughts are goal oriented and rational. No tangential or magical thinking noted. Patient speaks in full sentences without needing to catch his breath. Is mildly diaphoretic. HEENT: Normocephalic atraumatic. Pupils are equally round reactive to light. Extraocular muscles are intact. Conjunctivae are moist without any icterus noted. Moist mucous membranes. Posterior pharynx is normal. Neck is soft without any lymphadenopathy or thyromegaly. No masses are appreciated. Cardiovascular: Heart is regular rate and rhythm S1 and S2 are present without any murmurs. Lungs: Good air movement bilaterally, very mild end expiratory wheezes bilaterally. Abdomen: Soft and nontender nondistended with normal bowel sounds. Extremities: Bilateral lower extremities are without edema. Skin: Well perfused without any obvious rashes. Const: Vital Signs, click to edit/add: Vital Signs - 24 hr 06/04/24 10:38 Temperature 96.8 F L Pulse Rate [Pulse Oximeter] 66 Respiratory Rate 18 Blood Pressure [Ri t Upper Arm] 160/101 H Pulse Oximetry 96 Oxygen Delivery Me thod Room Air Course Course ED Course: Patient received DuoNeb and a L of normal saline along with Zofran. Chest x-ray, read by me, is not show any obvious infiltrates. Triple swab is positive for influenza B. Vital Signs Vital signs: Initial Vital Signs Temperature 96.8 F L 06/04/24 10:38 Temperature Source Temporal Artery Scan 06/04/24 10:38 Pulse Rate 66 06/04/24 10:38 Respiratory Rate 18 06/04/24 10:38 Blood Pressure 160/101 H 06/04/24 10:38 Blood Pressure Mean 120 H 06/04/24 10:38 Blood Pressure Position Supine 06/04/24 10:38 Pulse Oximetry 96 06/04/24 10:38 Oxygen Delivery Method Room Air 06/04/24 10:38 Vital Signs Temperature 96.8 F L 06/04/24 10:38 Pulse Rate 66 06/04/24 10:38 Respiratory Rate 18 06/04/24 10:38 Blood Pressure 160/101 H 06/04/24 10:38 Pulse Oximetry 96 06/04/24 10:38 Oxygen Delivery Method Room Air 06/04/24 10:38 Temperature 96.8 F L 06/04/24 10:38 Pulse Rate 66 06/04/24 10:38 Respiratory Rate 18 06/04/24 10:38 Blood Pressure 160/101 H 06/04/24 10:38 Pulse Oximetry 96 06/04/24 10:38 Oxygen Delivery Method Room Air 06/04/24 10:38 Medications Administered Medications: Discontinued Medications Generic Name Dose Route Start Last Admin Trade Name Freq PRN Reason Stop Dose Admin Albuterol/Ipratropium 1 neb 06/04/24 10:56 06/04/24 11:10 Iprat-Albut 0.5-2.5 Mg/3 Ml Neb IH 06/04/24 10:57 1 neb ONCE ONE Administration Sodium Chloride 500 mls @ 500 mls/hr 06/04/24 10:56 06/04/24 11:24 0.9 % Sodium Chloride 500 Ml IV 06/04/24 11:55 500 mls/hr .Q1H ONE Administration Ondansetron HCl 4 mg 06/04/24 10:56 06/04/24 11:24 Ondansetron 2 Mg/Ml Inj IVP 06/04/24 10:57 4 mg ONCE ONE Administration Medical Decision Making MDM Narrative Medical decision making narrative: 59-year-old male with influenza. Outside treatment window. Continue symptomatic treatment. Lab Data Lab results reviewed: Yes I reviewed the patient's lab results Labs: Lab Results 06/04/24 Range/Units Unknown SARS-CoV-2 (PCR) Negative SARS-CoV-2 (Negative) Influenza Type A (PCR) Negative PCR FLU A (Negative) Influenza Type B (PCR) POSITIVE PCR FLU B A (Negative) RSV (PCR) Negative PCR RSV (Negative) Imaging Data Chest x-ray: Attestation: I have reviewed the pertinent imaging results. Radiologist's impression: Shortness of breath TECHNIQUE: Two view chest. FINDINGS: The heart, mediastinum and pulmonary vessels are of normal size. There is no evidence of pleural disease. Possible subtle left perihilar infiltrate. Negative chest. Discharge Plan Discharge Clinical Impression: Influenza B Patient Disposition: Home, Self-Care Condition: Stable Instructions: Influenza (ED) Prescriptions: No Action omeprazole 40 mg capsule,delayed release(DR/EC) 40 mg PO DAILY albuterol sulfate 90 mcg/actuation HFA aerosol inhaler 2 puff INHALATION Q4H PRN (Reason: dyspnea) budesonide-formoterol 160-4.5 mcg/actuation HFA aerosol inhaler 2 puff INHALATION BID Follow Up/Referrals: Provider,Not a Local [Primary Care Provider] - Stand Alone Forms: [employer] Info Instructions
== END 2024-06-04 12:36 | disposition home or self-care (01) ==
PROVIDERS: Emergency Provider Family Medicine
DX: J10.1 Influenza due to other identified influenza virus with other respiratory manifestations (principal)
CPT/HCPCS: 71046; 87631; 96361; 96374; 99284; J2405; J7030